=== PATIENT | male | born 1935 | race Caucasian/White ===

== ENCOUNTER → 2017-05-24 | Outpatient (REF) ==
[~2017-05-24] MED LIST: ACTOS 45MG45 MG/TAB PO; ACTOS45 MG PO; ASPIRIN E.C. 8181 MG PO; ATIVAN 0.50.5 MG/TAB PO; ATIVAN0.5 MG PO; ATIVAN1 MG PO; BYSTOLIC5 MG PO; DITROPAN 5MG TAB5 MG PO; EFFEXOR 75M75 MG/TAB PO; HCTZ12.5TAB PO; LIPITOR20 MG PO; LISINOPRIL/HCTZ1 TA1 PO; METFORMIN500 MG PO; MUCINEX1200 MG PO; NEFAZODONE PO; NICODERM C7 MG/PATCH TOP; PLAVIX 75MG TAB75 MG PO; RESTORIL15 MG PO; SERZONE150 MG PO; SPIRIVA18 MCG IH; ULTRAM 50MG TAB50 MG PO; VESICARE 5MG5 MG PO; ZESTORETIC 12.51 TA1 PO; ZOCOR40 MG PO
[2017-05-24 09:36] LABS: PSA-TOTAL 1.12 ng/mL (0-4); THYROID STIMULATING HORMONE 1.17 uIU/mL (0.465-4.680)
== END ==
LOC: ZLAB.WCH 08:53
PROVIDERS: Internal Medicine
DX: Z01.89 Encounter for other specified special examinations (principal)
CPT/HCPCS: G0103

== ENCOUNTER → 2017-09-20 | Outpatient (REF) | LOC: ZLAB.WCH 17:26 | DX: Z01.89 Encounter for other specified special examinations (principal) ==

== ENCOUNTER → 2017-12-05 | Outpatient (REF) | LOC: ZLAB.WCH 18:31 | DX: Z01.89 Encounter for other specified special examinations (principal) ==

== ENCOUNTER → 2017-12-26 | Outpatient (REF) | LOC: ZLAB.WCH 09:09 | DX: Z01.89 Encounter for other specified special examinations (principal) ==

== ENCOUNTER → 2018-01-08 | Outpatient (REF) | LOC: ZLAB.WCH 08:45 | DX: Z01.89 Encounter for other specified special examinations (principal) ==

== ENCOUNTER → 2018-01-12 | Outpatient (REF) | LOC: ZLAB.WCH 08:38 | DX: Z01.89 Encounter for other specified special examinations (principal) ==

== ENCOUNTER → 2018-01-16 | Outpatient (REF) | LOC: ZLAB.WCH 14:22 | DX: Z01.89 Encounter for other specified special examinations (principal) ==

== ENCOUNTER → 2018-01-17 | Outpatient (REF) | LOC: ZLAB.WCH 16:04 | DX: Z01.89 Encounter for other specified special examinations (principal) ==

== ENCOUNTER → 2018-01-19 | Outpatient (REF) | LOC: ZLAB.WCH 16:02 | DX: Z01.89 Encounter for other specified special examinations (principal) ==

== ENCOUNTER → 2018-01-24 | Outpatient (REF) | LOC: ZLAB.WCH 08:26 | DX: Z01.89 Encounter for other specified special examinations (principal) ==

== ENCOUNTER → 2018-01-27 | Outpatient (REF) | LOC: ZLAB.WCH 11:18 | DX: Z01.89 Encounter for other specified special examinations (principal) ==

== ENCOUNTER → 2018-02-01 | Outpatient (REF) | LOC: ZLAB.WCH 16:19 | DX: Z01.89 Encounter for other specified special examinations (principal) ==

== ENCOUNTER → 2018-02-03 | Outpatient (REF) | LOC: ZLAB.WCH 12:02 | DX: Z01.89 Encounter for other specified special examinations (principal) ==

== ENCOUNTER → 2018-02-13 | Outpatient (REF) | LOC: ZLAB.WCH 14:26 | DX: Z01.89 Encounter for other specified special examinations (principal) ==

== ENCOUNTER → 2018-02-23 | Outpatient (REF) | LOC: ZLAB.WCH 08:31 | DX: Z01.89 Encounter for other specified special examinations (principal) ==

== ENCOUNTER 2018-03-11 11:09 | Observation (INO) | payer MEDICARE, MEDICAID ==
[~2018-03-11] VITALS: Ht 172.7 cm; Wt 90.9 kg
[2018-03-11 11:36] LABS: BASO # 0.1 (0.0-0.2); BASO % 0.4 % (0.0-2.0); EOS # 0.8 (0.0-0.7); EOS % 6.6 % (0-4.0); GRAN # 9.2 (1.4-6.5); GRAN % 81.2 % (42.2-75.2); HEMOGLOBIN 11.5 g/dl (13.5-18.0); LYMPH # 0.6 (1.2-3.4); LYMPH % 5.6 % (20.0-51.0); MEAN CELL VOLUME 90 fl (80.0-100.0); MEAN CORPUSCULAR HEMOGLOBIN 30 pg (27.0-31.0); MEAN CORPUSCULAR HGB CONC 33 g/dl (33.0-37.0); MEAN PLATELET VOLUME 10.6 fl (7.4-10.4); MONO # 0.6 (0.1-0.6); MONO % 5.1 % (1.7-9.3); PLATELET COUNT 287 K/mm3 (130-400); RED BLOOD COUNT 3.85 M/mm3 (4.20-5.60); REDCELL DISTRIBUTION WIDTH-CV 16.1 % (11.5-14.5)
[2018-03-11 11:37] LABS: HEMATOCRIT 34.7 % (42.0-52.0)
[2018-03-11 11:57] LABS: LIPASE 515 U/L (23-300)
[2018-03-11] MEDS ORDERED: TYLENOL 325MG325 MG PO (12:00)
[2018-03-11] MEDS ORDERED: RT ADVAIR 228 DISKUS IH ×2 (12:01→12:10)
[2018-03-11] MEDS ORDERED: ATROVENT NASAL15 ML NS (12:02)
[2018-03-11 12:04] LABS: C-REACTIVE PROTEIN < 0.5 mg/dL (0.0-0.9)
[2018-03-11] MEDS ORDERED: BIOTENE MOIST44.3 ML PO (12:04)
[2018-03-11] MEDS ORDERED: BYSTOLIC20 MG PO (12:05)
[2018-03-11] MEDS ORDERED: CATAPRES0.2 MG PO (12:06)
[2018-03-11] MEDS ORDERED: COLACE 100100 MG/CAP PO (12:06)
[2018-03-11] MEDS ORDERED: FLEXERIL 1010 MG/TAB PO (12:07)
[2018-03-11] MEDS ORDERED: DULCOLAX S10 MG/SUPP RC (12:08)
[2018-03-11] MEDS ORDERED: FIBERCON (12:09)
[2018-03-11] MEDS ORDERED: IPRATROPIUM BROM3 M1 IH (12:09)
[2018-03-11] MEDS ORDERED: MICROZIDE12.5 MG PO (12:10)
[2018-03-11 12:11] LABS: PROLACTIN 9.1 ng/mL (3.7-17.9); TROPONIN-I < 0.012 ng/mL (0.000-0.034)
[2018-03-11] MEDS ORDERED: HCTZ12.5TAB PO (12:11)
[2018-03-11] MEDS ORDERED: ICY HOT 7.6%-291 STI TP (12:13)
[2018-03-11] MEDS ORDERED: LANTUS SOLOS100 U/ML SQ (12:14)
[2018-03-11] MEDS ORDERED: LIPITOR20 MG PO (12:14)
[2018-03-11] MEDS ORDERED: LOTRISONE 0.05%1 CRE TOP (12:15)
[2018-03-11] MEDS ORDERED: MILK OF MA400 MG/52 (12:16)
[2018-03-11] MEDS ORDERED: MICATIN2% TP (12:16)
[2018-03-11] MEDS ORDERED: MULTI VITAMINS1 TAB PO (12:17)
[2018-03-11] MEDS ORDERED: MIRALAX PA17 GM/Dose PO (12:17)
[2018-03-11] MEDS ORDERED: MUCINEX1200 MG PO (12:17)
[2018-03-11] MEDS ORDERED: NAMENDA 10MG TA10 MG PO (12:18)
[2018-03-11] MEDS ORDERED: NITROSTAT0.4 MG/TAB SL (12:19)
[2018-03-11] MEDS ORDERED: NEXIUM 40MG40 MG PO (12:19)
[2018-03-11] MEDS ORDERED: NORVASC 10MG10 MG PO (12:19)
[2018-03-11] MEDS ORDERED: PLAVIX 75MG TAB75 MG PO (12:20)
[2018-03-11] MEDS ORDERED: SINEMET 25/101 UDTAB PO (12:21)
[2018-03-11] MEDS ORDERED: FLOMAX 0.40.4 MG/CAP PO (12:21)
[2018-03-11] MEDS ORDERED: [UNRECOGNIZED DRUG - CODE] TP (12:22)
[2018-03-11] MEDS ORDERED: ULTRAM 50MG TAB50 MG PO (12:22)
[2018-03-11] MEDS ORDERED: EFFEXOR 75M75 MG/TAB PO (12:22)
[2018-03-11] MEDS ORDERED: ZESTRIL 20MG TA20 MG PO (12:23)
[2018-03-11 12:25] LABS: ALBUMIN 3.9 gm/dL (3.5-5.0); BILIRUBIN,TOTAL 0.3 mg/dL (0.0-1.0); CREATININE, serum 2.13 mg/dL (0.66-1.25); POTASSIUM 4.8 mmol/L (3.4-5.0); TOTAL PROTEIN 7.8 gm/dL (6.4-8.2)
[2018-03-11 14:05] LABS: COLLECTION METHOD CLEAN CATCH
[2018-03-11 14:09] VITALS: BP 148/81; PULSE 65
[2018-03-11 14:12] LABS: PH 5 (5-8); SQUAMOUS EPITHELIAL None Seen /hpf; URINE APPEARANCE Clear; URINE BACTERIA None Seen /hpf; URINE BILIRUBIN Negative (NEGATIVE); URINE BLOOD Negative (NEGATIVE); URINE COLOR Yellow; URINE GLUCOSE Negative (NEGATIVE); URINE KETONE Negative (NEGATIVE); URINE LEUKOCYTE ESTERASE 1+ (NEGATIVE); URINE NITRATE Negative (NEGATIVE); URINE PROTEIN(semi-quant) Negative (NEGATIVE); URINE RBC 0-2 /hpf; URINE UROBILINOGEN Negative (NEGATIVE)
[2018-03-11 17:10] VITALS: BP 164/54; PULSE 70; TEMP 98.4
[2018-03-11 20:27] VITALS: BP 173/59; PULSE 72; TEMP 98.1
[2018-03-11 23:52] VITALS: BP 153/56; PULSE 71; TEMP 98
[2018-03-12 04:42] VITALS: BP 159/51; PULSE 70; TEMP 98.1
[2018-03-12 06:28] LABS: BASO % 0.3 % (0.0-2.0); EOS # 0.6 (0.0-0.7); EOS % 7.4 % (0-4.0); GRAN # 6.6 (1.4-6.5); LYMPH # 0.8 (1.2-3.4); LYMPH % 8.7 % (20.0-51.0); MEAN CELL VOLUME 89 fl (80.0-100.0); MEAN CORPUSCULAR HGB CONC 33 g/dl (33.0-37.0); MONO # 0.6 (0.1-0.6); PLATELET COUNT 241 K/mm3 (130-400); RED BLOOD COUNT 3.32 M/mm3 (4.20-5.60)
[2018-03-12 06:43] LABS: HEMATOCRIT 29.6 % (42.0-52.0); HEMOGLOBIN 9.7 g/dl (13.5-18.0); MEAN CORPUSCULAR HEMOGLOBIN 29 pg (27.0-31.0)
[2018-03-12 06:50] LABS: CALCIUM 8.5 mg/dL (8.4-10.2); CREATININE, serum 1.98 mg/dL (0.66-1.25); MAGNESIUM 1.6 mg/dL (1.6-2.3); POTASSIUM 4.3 mmol/L (3.4-5.0)
[2018-03-12 09:31] VITALS: BP 166/53; PULSE 77; TEMP 98.2
[2018-03-12 11:48] VITALS: BP 137/62; PULSE 80; TEMP 98.7
[2018-03-12 16:51] VITALS: BP 177/57; PULSE 80; TEMP 98.3
[2018-03-12 21:30] VITALS: BP 186/68; PULSE 74; TEMP 98.2
[2018-03-13 00:27] VITALS: BP 191/62; PULSE 80; TEMP 97.9
[2018-03-13 01:20] VITALS: BP 165/63
[2018-03-13 05:06] VITALS: BP 161/65; PULSE 84; TEMP 98.4
[2018-03-13 07:20] LABS: BASO % 0.5 % (0.0-2.0); EOS # 0.6 (0.0-0.7); EOS % 7.5 % (0-4.0); GRAN # 6.1 (1.4-6.5); GRAN % 72.8 % (42.2-75.2); HEMOGLOBIN 10.4 g/dl (13.5-18.0); LYMPH # 0.8 (1.2-3.4); LYMPH % 9.2 % (20.0-51.0); MEAN CELL VOLUME 90 fl (80.0-100.0); MEAN CORPUSCULAR HEMOGLOBIN 30 pg (27.0-31.0); MEAN CORPUSCULAR HGB CONC 33 g/dl (33.0-37.0); MONO # 0.8 (0.1-0.6); MONO % 9.3 % (1.7-9.3); PLATELET COUNT 246 K/mm3 (130-400); RED BLOOD COUNT 3.52 M/mm3 (4.20-5.60); REDCELL DISTRIBUTION WIDTH-CV 15.9 % (11.5-14.5)
[2018-03-13 07:21] LABS: HEMATOCRIT 31.6 % (42.0-52.0)
[2018-03-13 07:35] LABS: CALCIUM 9.2 mg/dL (8.4-10.2); CREATININE, serum 1.99 mg/dL (0.66-1.25); MAGNESIUM 1.6 mg/dL (1.6-2.3)
[2018-03-13 08:26] VITALS: BP 170/66; PULSE 81; TEMP 98.7
[2018-03-13 11:12] VITALS: BP 152/64; PULSE 80; TEMP 98.3
[2018-03-13] MEDS ORDERED: OMNICEF 300MG300 MG PO (12:59)
[2018-03-13] MEDS ORDERED: ZESTRIL 20MG TA20 MG PO (13:00)
[2018-03-13] MEDS ORDERED: ATIVAN 0.50.5 MG/TAB PO (13:02)
[2018-03-13] MEDS ORDERED: ULTRAM 50MG TAB50 MG PO (13:02)
[2018-03-13 13:15] VITALS: BP 152/64; PULSE 80; TEMP 98.3
== END 2018-03-13 14:18 | disposition home or self-care (01) ==
LOC: COL.ER 11:09 → MEDICAL 15:31
PROVIDERS: Emergency Medicine; Nurse Practitioner Family; Physician Assistant
DX: R55 Syncope and collapse (principal); N39.0 Urinary tract infection, site not specified; I95.9 Hypotension, unspecified; G89.29 Other chronic pain; M19.90 Unspecified osteoarthritis, unspecified site; I25.10 Atherosclerotic heart disease of native coronary artery without angina pectoris; J43.9 Emphysema, unspecified; Z86.73 Personal history of transient ischemic attack (TIA), and cerebral infarction without residual deficits; G47.33 Obstructive sleep apnea (adult) (pediatric); E78.5 Hyperlipidemia, unspecified; F32.9 Major depressive disorder, single episode, unspecified; F41.9 Anxiety disorder, unspecified; G20 Parkinson's disease; F02.80 Dementia in other diseases classified elsewhere, unspecified severity, without behavioral disturbance, psychotic disturbance, mood disturbance, and anxiety; N40.0 Benign prostatic hyperplasia without lower urinary tract symptoms; K21.9 Gastro-esophageal reflux disease without esophagitis; I12.9 Hypertensive chronic kidney disease with stage 1 through stage 4 chronic kidney disease, or unspecified chronic kidney disease; E11.22 Type 2 diabetes mellitus with diabetic chronic kidney disease; N18.9 Chronic kidney disease, unspecified; Z79.4 Long term (current) use of insulin; Z79.02 Long term (current) use of antithrombotics/antiplatelets; Z79.51 Long term (current) use of inhaled steroids; Z88.0 Allergy status to penicillin; Z88.2 Allergy status to sulfonamides; Z88.6 Allergy status to analgesic agent; Z87.891 Personal history of nicotine dependence; Z83.3 Family history of diabetes mellitus
CPT/HCPCS: G0378; G8978-GP; G8979-GP; G8987-GO; G8988-GO; J0696; J1644; J1815; J2405; J7030

== ENCOUNTER → 2018-07-04 | Outpatient (REF) ==
[~2018-07-04] MED LIST changes: +ATROVENT NASAL15 ML NS; +BIOTENE MOIST44.3 ML PO; +BYSTOLIC20 MG PO; +CATAPRES0.2 MG PO; +COLACE 100100 MG/CAP PO; +DULCOLAX S10 MG/SUPP RC; +FIBERCON; +FLEXERIL 1010 MG/TAB PO; +FLOMAX 0.40.4 MG/CAP PO; +ICY HOT 7.6%-291 STI TP; +IPRATROPIUM BROM3 M1 IH; +LANTUS SOLOS100 U/ML SQ; +LOTRISONE 0.05%1 CRE TOP; +MICATIN2% TP; +MICROZIDE12.5 MG PO; +MILK OF MA400 MG/52; +MIRALAX PA17 GM/Dose PO; +MULTI VITAMINS1 TAB PO; +NAMENDA 10MG TA10 MG PO; +NEXIUM 40MG40 MG PO; +NITROSTAT0.4 MG/TAB SL; +NORVASC 10MG10 MG PO; +OMNICEF 300MG300 MG PO; +RT ADVAIR 228 DISKUS IH; +SINEMET 25/101 UDTAB PO; +TYLENOL 325MG325 MG PO; +ZESTRIL 20MG TA20 MG PO; +[UNRECOGNIZED DRUG - CODE] TP
== END ==
LOC: ZLAB.WCH 09:22
DX: Z01.89 Encounter for other specified special examinations (principal)

== ENCOUNTER 2018-10-07 09:47 | Inpatient (IN) | payer MEDICARE, MEDICAID ==
[~2018-10-07] VITALS: Ht 172.7 cm; Wt 86.2 kg
[2018-10-07 10:38] LABS: BASO % 0.5 % (0.0-2.0); EOS # 0.7 (0.0-0.7); EOS % 8.1 % (0-4.0); GRAN # 6.7 (1.4-6.5); GRAN % 76.1 % (42.2-75.2); HEMATOCRIT 37.9 % (42.0-52.0); HEMOGLOBIN 12.2 g/dl (13.5-18.0); LYMPH # 0.6 (1.2-3.4); LYMPH % 6.2 % (20.0-51.0); MEAN CELL VOLUME 88 fl (80.0-100.0); MEAN CORPUSCULAR HEMOGLOBIN 28 pg (27.0-31.0); MEAN CORPUSCULAR HGB CONC 32 g/dl (33.0-37.0); MONO # 0.7 (0.1-0.6); MONO % 8.4 % (1.7-9.3); PLATELET COUNT 282 K/mm3 (130-400); RED BLOOD COUNT 4.32 M/mm3 (4.20-5.60); REDCELL DISTRIBUTION WIDTH-CV 15.2 % (11.5-14.5)
[2018-10-07 10:51] LABS: PROTHROMBIN TIME 11.7 SECONDS (9.7-12.8)
[2018-10-07 10:53] LABS: PARTIAL THROMBOPLASTIN TIME 32.4 SECONDS (26.0-37.0)
[2018-10-07 10:55] LABS: ALANINE AMINOTRANSFERASE 23 U/L (21-72); ALKALINE PHOSPHATASE 100 U/L (50-136); ANION GAP 7 mmol/L (7-16); AST,SGOT 14 U/L (15-37); BILIRUBIN,TOTAL 0.3 mg/dL (0.0-1.0); BLOOD UREA NITROGEN 36 mg/dL (9-20); CALCIUM 9.1 mg/dL (8.4-10.2); CARBON DIOXIDE 26 mmol/L (22-30); CHLORIDE 109 mmol/L (98-107); CREATINE KINASE 30 U/L (55-170); CREATININE, serum 1.77 mg/dL (0.66-1.25); GLUCOSE 154 mg/dL (74-106); POTASSIUM 4.5 mmol/L (3.4-5.0); SODIUM 143 mmol/L (137-145); TOTAL PROTEIN 7.5 gm/dL (6.4-8.2)
[2018-10-07 11:07] LABS: TROPONIN-I < 0.012 ng/mL (0.000-0.034)
[2018-10-07 11:13] LABS: COLLECTION METHOD CLEAN CATCH
[2018-10-07 11:22] LABS: PH 5 (5-8); SQUAMOUS EPITHELIAL None Seen /hpf; URINE APPEARANCE Hazy; URINE BACTERIA None Seen /hpf; URINE BILIRUBIN Negative (NEGATIVE); URINE BLOOD 1+ (NEGATIVE); URINE COLOR Yellow; URINE GLUCOSE Negative (NEGATIVE); URINE KETONE Negative (NEGATIVE); URINE LEUKOCYTE ESTERASE 2+ (NEGATIVE); URINE NITRATE Negative (NEGATIVE); URINE PROTEIN(semi-quant) 1+ (NEGATIVE); URINE UROBILINOGEN Negative (NEGATIVE)
[2018-10-07] MEDS ORDERED: PROBIOTIC GOLD1 EACH PO (12:28)
[2018-10-07 13:07] VITALS: BP 186/64; PULSE 80; TEMP 97.9
[2018-10-07] MEDS ORDERED: TYLENOL 500MG500 MG PO (13:45)
[2018-10-07] MEDS ORDERED: ATIVAN 1MG T1 MG/TAB PO (14:30)
[2018-10-07] MEDS ORDERED: CEPHALEXIN500 M1 PO (14:46)
[2018-10-07] MEDS ORDERED: ZYRTEC 10MG10 MG PO (14:50)
[2018-10-07] MEDS ORDERED: ATARAX 10MG10 MG/TAB PO (14:59)
[2018-10-07] MEDS ORDERED: LEVEMIR FLEX100 U/ML SQ (15:02)
[2018-10-07 15:51] VITALS: BP 190/68; PULSE 75; TEMP 97.8
[2018-10-07 18:51] VITALS: BP 167/66; PULSE 88; TEMP 97.4
[2018-10-07 22:58] VITALS: BP 184/73; PULSE 79; TEMP 98.1
[2018-10-08 03:21] VITALS: BP 208/75; PULSE 78
[2018-10-08 07:02] VITALS: BP 192/72; PULSE 81; TEMP 98.2
[2018-10-08 07:47] LABS: BASO % 0.5 % (0.0-2.0); EOS # 0.6 (0.0-0.7); EOS % 7.2 % (0-4.0); GRAN # 5.9 (1.4-6.5); GRAN % 77.8 % (42.2-75.2); HEMOGLOBIN 12.3 g/dl (13.5-18.0); LYMPH # 0.5 (1.2-3.4); MEAN CELL VOLUME 88 fl (80.0-100.0); MEAN CORPUSCULAR HEMOGLOBIN 28 pg (27.0-31.0); MEAN CORPUSCULAR HGB CONC 32 g/dl (33.0-37.0); MEAN PLATELET VOLUME 10.6 fl (7.4-10.4); MONO # 0.6 (0.1-0.6); MONO % 7.7 % (1.7-9.3); PLATELET COUNT 270 K/mm3 (130-400); RED BLOOD COUNT 4.45 M/mm3 (4.20-5.60); REDCELL DISTRIBUTION WIDTH-CV 14.8 % (11.5-14.5)
[2018-10-08 08:00] LABS: BILIRUBIN,TOTAL 0.4 mg/dL (0.0-1.0); CHOLESTEROL RISK RATIO 6.6; CREATININE, serum 1.52 mg/dL (0.66-1.25); POTASSIUM 4.5 mmol/L (3.4-5.0); TOTAL PROTEIN 7.4 gm/dL (6.4-8.2)
[2018-10-08 11:19] VITALS: BP 172/91; PULSE 84; TEMP 98.4
[2018-10-08 15:34] VITALS: BP 172/62; PULSE 74; TEMP 97.6
[2018-10-08 21:20] VITALS: BP 118/57; PULSE 80; TEMP 98.2
[2018-10-09 00:43] VITALS: BP 174/78; PULSE 91
[2018-10-09 07:14] LABS: BASO # 0.1 (0.0-0.2); BASO % 0.4 % (0.0-2.0); EOS # 0.6 (0.0-0.7); EOS % 4.7 % (0-4.0); GRAN # 9.5 (1.4-6.5); GRAN % 80.4 % (42.2-75.2); HEMATOCRIT 39.4 % (42.0-52.0); LYMPH # 0.6 (1.2-3.4); LYMPH % 5.2 % (20.0-51.0); MEAN CELL VOLUME 86 fl (80.0-100.0); MEAN CORPUSCULAR HEMOGLOBIN 28 pg (27.0-31.0); MEAN CORPUSCULAR HGB CONC 33 g/dl (33.0-37.0); MEAN PLATELET VOLUME 10.3 fl (7.4-10.4); MONO % 8.5 % (1.7-9.3); PLATELET COUNT 288 K/mm3 (130-400); RED BLOOD COUNT 4.58 M/mm3 (4.20-5.60)
[2018-10-09 07:18] VITALS: BP 190/78; PULSE 84; TEMP 98.7
[2018-10-09 07:25] LABS: CALCIUM 9.2 mg/dL (8.4-10.2); CREATININE, serum 1.66 mg/dL (0.66-1.25); POTASSIUM 4.4 mmol/L (3.4-5.0)
[2018-10-09] MEDS ORDERED: ASPIRIN 81M81 MG/TA2 PO (09:35)
[2018-10-09] MEDS ORDERED: SINEMET 25/101 UDTAB PO (09:36)
[2018-10-09 12:30] VITALS: BP 190/78; PULSE 84; TEMP 98.7
== END 2018-10-09 13:30 | DRG 65 ==
LOC: COL.ER 09:47 → MEDICAL 12:11
PROVIDERS: Emergency Medicine; Hospitalist; Physician Assistant
DX: I63.89 Other cerebral infarction (principal); N17.9 Acute kidney failure, unspecified; N39.0 Urinary tract infection, site not specified; I65.23 Occlusion and stenosis of bilateral carotid arteries; R13.10 Dysphagia, unspecified; E11.9 Type 2 diabetes mellitus without complications; N18.3 Chronic kidney disease, stage 3 (moderate); I12.9 Hypertensive chronic kidney disease with stage 1 through stage 4 chronic kidney disease, or unspecified chronic kidney disease; I95.1 Orthostatic hypotension; D63.8 Anemia in other chronic diseases classified elsewhere; G47.33 Obstructive sleep apnea (adult) (pediatric); E78.5 Hyperlipidemia, unspecified; G20 Parkinson's disease; J44.9 Chronic obstructive pulmonary disease, unspecified; G62.9 Polyneuropathy, unspecified; E11.40 Type 2 diabetes mellitus with diabetic neuropathy, unspecified; I25.10 Atherosclerotic heart disease of native coronary artery without angina pectoris; Z87.891 Personal history of nicotine dependence; Z88.5 Allergy status to narcotic agent; Z88.0 Allergy status to penicillin; Z88.2 Allergy status to sulfonamides; Z88.8 Allergy status to other drugs, medicaments and biological substances
CPT/HCPCS: 99233-AI; A4216; A9585; G8987-GO; G8988-GO; J0696; J1644; J1815; J7030